=== PATIENT | male | born 1985 | race Caucasian/White ===

== ENCOUNTER 2022-11-12 20:04 | Emergency (ER) | payer OTHER ==
[~2022-11-12] VITALS: Ht 170.2 cm; Wt 72.6 kg
[~2022-11-12 20:04] MED LIST: CEPH500 PO; SULTRIDS PO
[2022-11-13] MEDS ORDERED: SULTRIDS PO (01:59)
== END 2022-11-13 02:01 | disposition home or self-care (01) ==
LOC: ER 20:04
DX: L02.11 Cutaneous abscess of neck (principal)
CPT/HCPCS: 10160; 99283-25; A9270